=== PATIENT | male | born 1990 | race American Indian/Alaskan Native ===

== ENCOUNTER 2020-06-04 12:24 | Inpatient (IN) ==
[2020-06-04] MEDS ORDERED: INSULIN REGULAR 100 UNIT/ML IV ONE (14:27)
[2020-06-04] MEDS ORDERED: ALBUTEROL 2.5 MG/3 ML NEB RESP TX PRN (14:27)
[2020-06-04] MEDS ORDERED: MAGNESIUM SULF RIDER 4 GM in PREMIX 1 EACH IV PRN (14:27)
[2020-06-04] MEDS ORDERED: DEXTROSE 50% 25 GM/50 ML VIAL IV PRN (14:27)
[2020-06-04] MEDS: LACTATED RINGERS 1,000 ML IV SCH ×2 (14:53→19:25)
[2020-06-04 14:54] LABS: Bilirubin,Urine Negative (Negative); Blood, Urine Moderate mg/dL (Negative); Glucose,Urine (UA) >=500 mg/dL (Negative); Ketones,Urine 5 mg/dL (Negative); Nitrite,Urine Negative (Negative); Protein,Urine Negative; RBC,Urine <1 /HPF (0-4); Urine Appearance CLEAR (Clear); Urine Color Straw (Yellow); Urine Urobilinogen < 2.0 EU/DL (0.2-1.0); WBC,Urine 2 /HPF (0-6)
[2020-06-04] MEDS: PANTOPRAZOLE 40 MG VIAL IV SCH (15:06)
[2020-06-04 15:18] LABS: Alanine Aminotransferase 49 U/L (16-61); Albumin 1.6 G/DL (3.4-5.0); Alkaline Phosphatase 119 U/L (45-117); Aspartate Amino Transferase 22 U/L (0-37); Blood Urea Nitrogen 25 MG/DL (7-18); Estimated Glom Filtration Rate 92 ML/MIN; Osmolality,Calculated 332.2 MOS/KG (273-304); Total Protein 3.6 G/DL (6.4-8.3); Troponin I 0.017 NG/ML (0.00-0.045)
[2020-06-04] MEDS: POTASSIUM CHLORIDE RIDER 10 MEQ in PREMIX 1 EACH IV PRN ×8 (15:20→22:49)
[2020-06-04 15:21] LABS: Calcium < 5.0 MG/DL (8.5-10.1); Glucose 1190 MG/DL (74-106)
[2020-06-04] MEDS ORDERED: POTASSIUM CHLORIDE 20 MEQ TABLET PO ONE (15:31)
[2020-06-04] MEDS ORDERED: LACTATED RINGERS 1,000 ML IV SCH ×2 (16:00→16:30)
[2020-06-04] MEDS: POTASSIUM CHLORIDE 20 MEQ TABLET PO SCH ×5 (16:25→20:47)
[2020-06-04 18:48] LABS: Calcium 8.1 MG/DL (8.5-10.1); Osmolality,Calculated 335.2 MOS/KG (273-304)
[2020-06-04] MEDS: ONDANSETRON 4 MG/2 ML VIAL IV PRN (20:21)
[2020-06-04 21:42] LABS: Osmolality,Calculated 335.1 MOS/KG (273-304)
[2020-06-04] MEDS: ENOXAPARIN 30 MG/0.3 ML SYRINGE SUBCUT SCH (22:21)
[2020-06-04 22:27] LABS: ABG Base Excess -15.5 MMOL/L (-2.5-2.5); ABG Oxygen Saturation 96.6 % (95-100); ABG PCO2 23.3 MM HG (35-48); ABG PH 7.256 (7.35-7.45); ABG PO2 84.3 MM HG (80-95); ABG TCO2 9.1 MMOL/L (23-27); Allen Test Positive; Pt O2 Delivery Device Room Air
[2020-06-04] MEDS: POTASSIUM CHLORIDE 20 MEQ/15 ML UDCUP PER TUBE PRN (22:49)
[2020-06-05] MEDS: POTASSIUM CHLORIDE RIDER 10 MEQ in PREMIX 1 EACH IV PRN ×6 (00:10→20:56)
[2020-06-05] MEDS: POTASSIUM CHLORIDE 20 MEQ/15 ML UDCUP PER TUBE PRN ×2 (00:40→03:03)
[2020-06-05 00:48] LABS: Calcium 8.5 MG/DL (8.5-10.1); Osmolality,Calculated 326.9 MOS/KG (273-304)
[2020-06-05] MEDS: ONDANSETRON 4 MG/2 ML VIAL IV PRN (00:48)
[2020-06-05] MEDS: LACTATED RINGERS 1,000 ML IV SCH ×4 (00:49→12:59)
[2020-06-05] MEDS: INSULIN REGULAR DRIP 100 ML IV SCH ×4 (00:54→22:23)
[2020-06-05 03:02] LABS: Basophils % 0.3 % (0.0-0.8); Hematocrit 36.8 VOL% (42.0-52.0); Hemoglobin 12.8 GM/DL (14.0-18.0); Immature Granulocytes % 0.5 %; Immature Granulocytes Absolute 0.03 #; Lymphocytes # 0.3 10*3/uL (1.4-4.0); Lymphocytes % 5.1 % (21.2-54.2); Mean Corpuscular HGB Conc 34.8 GM/DL (32-36); Mean Corpuscular Volume 86.8 FL (87-102); Mean Platelet Volume 10.5 FL (9.6-12.0); Monocytes % 7.9 % (1.7-12.7); Neutrophils % 86.2 % (38.7-73.9); Platelet Count 196 T/CUMM (130-400); Red Blood Count 4.24 MC/CUMM (3.8-5.5); Red Cell Distribution Width 13.3 % (9.3-17.3); White Blood Count 6.1 T/CUMM (4-12)
[2020-06-05] MEDS: MAGNESIUM SULF RIDER 2 GM in PREMIX 1 EACH IV PRN (03:21)
[2020-06-05 03:22] LABS: Albumin 2.1 G/DL (3.4-5.0); Bilirubin,Total 0.7 MG/DL (0.2-1.0); Calcium 8.2 MG/DL (8.5-10.1); Osmolality,Calculated 323.8 MOS/KG (273-304); Total Protein 4.9 G/DL (6.4-8.3)
[2020-06-05] MEDS: ACETAMINOPHEN 325 MG TABLET PO PRN ×3 (03:55→20:06)
[2020-06-05] MEDS ORDERED: SODIUM CHLORIDE 0.9% IV ONE (04:00)
[2020-06-05] MEDS ORDERED: SODIUM PHOSPHATE IV ONE (04:00)
[2020-06-05] MEDS ORDERED: NOREPINEPHRINE 4 MG/4 ML VIAL IV ONE ×2 (04:03→06:40)
[2020-06-05] MEDS: NOREPINEPHRINE 8 MG in SODIUM CHLORIDE 0.9% 242 ML IV PRN ×4 (04:08→22:19)
[2020-06-05] MEDS ORDERED: cefTRIAXone 1,000 MG in SYRINGE 1 EACH IV SCH (04:30)
[2020-06-05 04:54] LABS: Atypical Lymphocytes Few; Band Neutrophils 8 % (0-10); Lymphocytes 10 % (20-55); Metamyelocytes 2 %; Myelocytes 1 %; Segmented Neutrophils 75 % (50-85); Total Cells Counted 100
[2020-06-05 04:55] LABS: Microcytosis 1+
[2020-06-05] MEDS ORDERED: PROMETHAZINE INJ 12.5 MG in SODIUM CHLORIDE 0.9% 50 ML IV ONE (05:00)
[2020-06-05] MEDS ORDERED: PHENYLEPHRINE DRIP 40 MG/250 ML PREMIX IV ONE (06:02)
[2020-06-05] MEDS: PHENYLEPHRINE DRIP 40 MG/250 ML PREMIX IV PRN ×6 (06:10→20:52)
[2020-06-05 06:23] LABS: Calcium 8.4 MG/DL (8.5-10.1); Osmolality,Calculated 323.7 MOS/KG (273-304)
[2020-06-05] MEDS ORDERED: ALBUMIN 5% 12.5 GM/250 ML VIAL IV ONE (06:40)
[2020-06-05] MEDS ORDERED: CALCIUM CHLORIDE 1,000 MG/10 ML VIAL IV ONE (06:40)
[2020-06-05] MEDS ORDERED: SODIUM BICARBONATE 50 MEQ/50 ML VIAL IV ONE (06:40)
[2020-06-05 07:00] LABS: ABG Base Excess -12.7 MMOL/L (-2.5-2.5); ABG HCO3 13.2 MMOL/L (20-26); ABG PCO2 31.1 MM HG (35-48); ABG PO2 280.8 MM HG (80-95); ABG TCO2 14.2 MMOL/L (23-27); Hemoglobin Heart Surgery 14.2 G/DL (14.0-18.0); Ionized Calcium Arterial 1.22 MMOL/L (1.21-1.46); PCO2 Patient Temp Arterial 31.1 MMHG; PH Patient Temp Arterial 7.246; PO2 Patient Temp Arterial 280.8 MM HG; Patient Temperature 37 CELCIUS; Sodium Heart/CVR 127 MMOL/L (135-145)
[2020-06-05 07:02] LABS: ABG PH 7.246 (7.35-7.45)
[2020-06-05] MEDS ORDERED: LIDOCAINE 2% 5 ML VIAL ONE (08:15)
[2020-06-05] MEDS ORDERED: ETOMIDATE 40 MG/20 ML VIAL IV ONE (08:16)
[2020-06-05] MEDS ORDERED: MIDAZOLAM 2 MG/2 ML VIAL ONE (08:16)
[2020-06-05] MEDS ORDERED: ROCURONIUM 100 MG/10 ML VIAL IV ONE (08:16)
[2020-06-05] MEDS ORDERED: SUCCINYLCHOLINE 200 MG/10 ML VIAL ONE (08:16)
[2020-06-05] MEDS ORDERED: LACTATED RINGERS 1,000 ML IV ONE (08:16)
[2020-06-05] MEDS ORDERED: SEVOFLURANE 1 UNIT/15 MINUTE INH ONE (08:16)
[2020-06-05] MEDS ORDERED: HEPARIN/NACL 0.9% 2 UNITS/ML 500 ML IV ONE (08:16)
[2020-06-05] MEDS ORDERED: fentaNYL 100 MCG/2 ML VIAL ONE (08:16)
[2020-06-05 08:32] LABS: ABG Base Excess -9.7 MMOL/L (-2.5-2.5); ABG HCO3 16.8 MMOL/L (20-26); ABG Oxygen Saturation 99.9 % (95-100); ABG PCO2 36.7 MM HG (35-48); ABG PH 7.266 (7.35-7.45)
[2020-06-05 10:16] LABS: Calcium 7.6 MG/DL (8.5-10.1); Osmolality,Calculated 316.8 MOS/KG (273-304)
[2020-06-05] MEDS: POTASSIUM CHLORIDE INJ 40 MEQ in LACTATED RINGERS 1,000 ML IV SCH ×3 (11:21→20:29)
[2020-06-05] MEDS: fentaNYL INJ 1,250 MCG in SODIUM CHLORIDE 0.9% 225 ML IV PRN ×2 (12:24→23:51)
[2020-06-05] MEDS: PANTOPRAZOLE 40 MG VIAL IV SCH (15:07)
[2020-06-05 15:58] LABS: Osmolality,Calculated 329.2 MOS/KG (273-304)
[2020-06-05] MEDS: POTASSIUM CHLORIDE RIDER 20 MEQ in PREMIX 1 EACH IV PRN ×2 (16:42→18:49)
[2020-06-05] MEDS: metroNIDAZOLE INJ 500 MG in PREMIX 1 EACH IV SCH (17:02)
[2020-06-05 17:28] LABS: Calcium 7.6 MG/DL (8.5-10.1)
[2020-06-05] MEDS: cefOXitin 2,000 MG in SYRINGE 1 EACH IV SCH (18:00)
[2020-06-05] MEDS ORDERED: DEXTROSE IV SCH (19:30)
[2020-06-05] MEDS ORDERED: POTASSIUM CHLORIDE IV SCH (19:30)
[2020-06-05] MEDS ORDERED: LACTATED RINGERS IV SCH (19:30)
[2020-06-05] MEDS: ENOXAPARIN 30 MG/0.3 ML SYRINGE SUBCUT SCH (20:06)
[2020-06-05] MEDS: POTASSIUM CHLORIDE INJ 40 MEQ in DEXTROSE 5% LACTATED RINGERS 1,000 ML IV SCH (20:13)
[2020-06-06] MEDS: metroNIDAZOLE INJ 500 MG in PREMIX 1 EACH IV SCH ×4 (00:43→16:58)
[2020-06-06 00:56] LABS: Calcium 6.8 MG/DL (8.5-10.1); Osmolality,Calculated 303.3 MOS/KG (273-304)
[2020-06-06] MEDS: POTASSIUM CHLORIDE RIDER 20 MEQ in PREMIX 1 EACH IV PRN ×2 (01:28→03:30)
[2020-06-06] MEDS: POTASSIUM CHLORIDE INJ 40 MEQ in DEXTROSE 5% LACTATED RINGERS 1,000 ML IV SCH ×2 (01:37→07:02)
[2020-06-06] MEDS: MAGNESIUM SULF RIDER 2 GM in PREMIX 1 EACH IV PRN (01:43)
[2020-06-06] MEDS: PHENYLEPHRINE DRIP 40 MG/250 ML PREMIX IV PRN ×3 (02:45→14:50)
[2020-06-06 04:19] LABS: ABG Base Excess -9.3 MMOL/L (-2.5-2.5); ABG Oxygen Saturation 99.7 % (95-100); ABG PH 7.309 (7.35-7.45); ABG TCO2 14.6 MMOL/L (23-27)
[2020-06-06 04:34] LABS: Basophils # 0.1 10*3/uL (0.0-0.2); Basophils % 0.7 % (0.0-0.8); Eosinophils # 0.2 10*3/uL (0.0-0.87); Immature Granulocytes Absolute 0.19 #; Lymphocytes # 1.3 10*3/uL (1.4-4.0); Lymphocytes % 13.8 % (21.2-54.2); Mean Corpuscular HGB Conc 36.6 GM/DL (32-36); Mean Corpuscular Volume 83.3 FL (87-102); Mean Platelet Volume 11.2 FL (9.6-12.0); Monocytes % 4.2 % (1.7-12.7); Neutrophils % 77.3 % (38.7-73.9); Red Blood Count 3.48 MC/CUMM (3.8-5.5); Red Cell Distribution Width 13.9 % (9.3-17.3)
[2020-06-06 04:44] LABS: Hemoglobin 10.6 GM/DL (14.0-18.0); Platelet Count 151 T/CUMM (130-400); White Blood Count 9.5 T/CUMM (4-12)
[2020-06-06 04:50] LABS: Band Neutrophils 5 % (0-10); Eosinophils 4 % (0-10); Lymphocytes 8 % (20-55); Microcytosis Slight; Platelet Estimate Adequate; Segmented Neutrophils 81 % (50-85); Total Cells Counted 100
[2020-06-06 04:51] LABS: Albumin 1.8 G/DL (3.4-5.0); Bilirubin,Total 0.5 MG/DL (0.2-1.0); Calcium 7.4 MG/DL (8.5-10.1); Osmolality,Calculated 306.6 MOS/KG (273-304); Total Protein 4.6 G/DL (6.4-8.3)
[2020-06-06 04:51] LABS: Atypical Lymphocytes Few
[2020-06-06] MEDS: INSULIN REGULAR DRIP 100 ML IV SCH ×2 (05:37→12:57)
[2020-06-06] MEDS: NOREPINEPHRINE 8 MG in SODIUM CHLORIDE 0.9% 242 ML IV PRN (06:10)
[2020-06-06] MEDS: cefOXitin 2,000 MG in SYRINGE 1 EACH IV SCH ×2 (06:35→17:45)
[2020-06-06] MEDS: POTASSIUM CHLORIDE RIDER 10 MEQ in PREMIX 1 EACH IV PRN (06:54)
[2020-06-06 07:23] LABS: Glucose Heart Surgery > 700 MG/DL (74-106)
[2020-06-06 08:18] LABS: Calcium 7.5 MG/DL (8.5-10.1); Osmolality,Calculated 305.4 MOS/KG (273-304)
[2020-06-06] MEDS ORDERED: POTASSIUM CHLORIDE IV SCH (09:30)
[2020-06-06] MEDS ORDERED: DEXTROSE 5% IV SCH (09:30)
[2020-06-06] MEDS ORDERED: LACTATED RINGERS IV SCH (09:30)
[2020-06-06] MEDS: PANTOPRAZOLE 40 MG VIAL IV SCH ×2 (10:37→20:27)
[2020-06-06] MEDS: fentaNYL INJ 1,250 MCG in SODIUM CHLORIDE 0.9% 225 ML IV PRN ×2 (11:50→21:32)
[2020-06-06 12:17] LABS: Calcium 7.6 MG/DL (8.5-10.1); Osmolality,Calculated 301.4 MOS/KG (273-304)
[2020-06-06] MEDS ORDERED: HEPARIN/NACL 0.9% 2 UNITS/ML 500 ML IV ONE (15:02)
[2020-06-06] MEDS: DEXT 5% LACT RING KCL 20 MEQ 20 MEQ/1,000 ML BAG IV SCH ×2 (15:34→20:41)
[2020-06-06 19:40] LABS: Calcium 7.8 MG/DL (8.5-10.1); Osmolality,Calculated 307.7 MOS/KG (273-304)
[2020-06-06] MEDS: ENOXAPARIN 30 MG/0.3 ML SYRINGE SUBCUT SCH (20:27)
[2020-06-07] MEDS: PHENYLEPHRINE DRIP 40 MG/250 ML PREMIX IV PRN ×2 (00:18→08:15)
[2020-06-07] MEDS: metroNIDAZOLE INJ 500 MG in PREMIX 1 EACH IV SCH ×3 (00:40→17:45)
[2020-06-07] MEDS: DEXT 5% LACT RING KCL 20 MEQ 20 MEQ/1,000 ML BAG IV SCH ×2 (02:42→07:25)
[2020-06-07] MEDS: INSULIN REGULAR DRIP 100 ML IV SCH (04:08)
[2020-06-07 04:47] LABS: ABG Base Excess -10.6 MMOL/L (-2.5-2.5); ABG HCO3 16.3 MMOL/L (20-26); ABG Oxygen Saturation 99.6 % (95-100); ABG PCO2 36.1 MM HG (35-48); ABG PH 7.255 (7.35-7.45); ABG TCO2 14.2 MMOL/L (23-27)
[2020-06-07 04:51] LABS: Basophils # 0.1 10*3/uL (0.0-0.2); Basophils % 0.6 % (0.0-0.8); Eosinophils # 0.2 10*3/uL (0.0-0.87); Hematocrit 26.4 VOL% (42.0-52.0); Hemoglobin 9.2 GM/DL (14.0-18.0); Immature Granulocytes % 0.9 %; Immature Granulocytes Absolute 0.07 #; Lymphocytes # 1.1 10*3/uL (1.4-4.0); Lymphocytes % 13.9 % (21.2-54.2); Mean Corpuscular HGB Conc 34.8 GM/DL (32-36); Mean Corpuscular Volume 87.7 FL (87-102); Mean Platelet Volume 11.7 FL (9.6-12.0); Monocytes % 9.5 % (1.7-12.7); NRBC # 0.02 10*3/uL; Neutrophils % 72.1 % (38.7-73.9); Platelet Count 118 T/CUMM (130-400); Red Blood Count 3.01 MC/CUMM (3.8-5.5); Red Cell Distribution Width 15.1 % (9.3-17.3); White Blood Count 7.9 T/CUMM (4-12)
[2020-06-07 05:12] LABS: Eosinophils 5 % (0-10); Lymphocytes 18 % (20-55); Nucleated Red Blood Cells 1 (0-5); Platelet Estimate Decreased; Segmented Neutrophils 69 % (50-85); Total Cells Counted 100
[2020-06-07 05:13] LABS: Atypical Lymphocytes Few; Hypochromasia 1+; Microcytosis Slight
[2020-06-07 05:24] LABS: Calcium 7.7 MG/DL (8.5-10.1); Osmolality,Calculated 309.3 MOS/KG (273-304)
[2020-06-07] MEDS: cefOXitin 2,000 MG in SYRINGE 1 EACH IV SCH ×2 (06:10→17:00)
[2020-06-07] MEDS: fentaNYL INJ 1,250 MCG in SODIUM CHLORIDE 0.9% 225 ML IV PRN (07:35)
[2020-06-07] MEDS: PANTOPRAZOLE 40 MG VIAL IV SCH ×2 (08:50→20:42)
[2020-06-07] MEDS ORDERED: NOREPINEPHRINE 16 MG in DEXTROSE 5% 234 ML IV PRN (09:00)
[2020-06-07] MEDS: DEXTROSE 5% NACL 0.45% 1,000 ML IV SCH ×2 (09:50→17:55)
[2020-06-07] MEDS: ALBUMIN 25% 25 GM in PREMIX 1 EACH IV SCH ×2 (10:05→17:45)
[2020-06-07] MEDS ORDERED: DEXTROSE 50% 25 GM/50 ML VIAL IV PRN (10:29)
[2020-06-07] MEDS ORDERED: GLUCAGON 1 MG VIAL IM PRN (10:29)
[2020-06-07] MEDS ORDERED: ROCURONIUM 100 MG/10 ML VIAL IV ONE (12:31)
[2020-06-07] MEDS ORDERED: SEVOFLURANE 1 UNIT/15 MINUTE INH ONE (12:31)
[2020-06-07] MEDS ORDERED: SODIUM CHLORIDE 0.9% 500 ML IV ONE (12:31)
[2020-06-07] MEDS ORDERED: MIDAZOLAM 2 MG/2 ML VIAL ONE (12:31)
[2020-06-07] MEDS: INSULIN LISPRO 100 UNIT/ML SUBCUT SCH ×3 (13:10→20:41)
[2020-06-07] MEDS: INSULIN GLARGINE 100 UNIT/ML SUBCUT SCH ×2 (13:10→20:42)
[2020-06-07 13:19] LABS: Calcium 7.9 MG/DL (8.5-10.1); Osmolality,Calculated 305.7 MOS/KG (273-304)
[2020-06-07] MEDS: fentaNYL INJ 1,250 MCG in DEXTROSE 5% 225 ML IV PRN ×2 (15:10→21:30)
[2020-06-07] MEDS: PHENYLEPHRINE INJ 160 MG in DEXTROSE 5% 234 ML IV PRN (15:10)
[2020-06-07] MEDS: ENOXAPARIN 30 MG/0.3 ML SYRINGE SUBCUT SCH (20:42)
[2020-06-08] MEDS: INSULIN LISPRO 100 UNIT/ML SUBCUT SCH ×9 (00:14→22:50)
[2020-06-08] MEDS: metroNIDAZOLE INJ 500 MG in PREMIX 1 EACH IV SCH ×3 (01:45→16:45)
[2020-06-08] MEDS: ALBUMIN 25% 25 GM in PREMIX 1 EACH IV SCH ×2 (01:50→08:15)
[2020-06-08] MEDS: DEXTROSE 5% NACL 0.45% 1,000 ML IV SCH ×3 (01:55→23:36)
[2020-06-08] MEDS: fentaNYL INJ 1,250 MCG in DEXTROSE 5% 225 ML IV PRN ×2 (01:56→06:30)
[2020-06-08 04:52] LABS: ABG Base Excess -12.9 MMOL/L (-2.5-2.5); ABG HCO3 13.5 MMOL/L (20-26); ABG Oxygen Saturation 95.5 % (95-100); ABG PCO2 33.2 MM HG (35-48); ABG PH 7.228 (7.35-7.45); ABG PO2 81.8 MM HG (80-95); ABG TCO2 14.5 MMOL/L (23-27)
[2020-06-08 05:00] LABS: Basophils % 0.2 % (0.0-0.8); Eosinophils # 0.2 10*3/uL (0.0-0.87); Eosinophils % 2.4 % (0.00-10.9); Hematocrit 25.5 VOL% (42.0-52.0); Hemoglobin 8.2 GM/DL (14.0-18.0); Immature Granulocytes % 2.8 %; Immature Granulocytes Absolute 0.23 #; Lymphocytes # 1.4 10*3/uL (1.4-4.0); Lymphocytes % 16.9 % (21.2-54.2); Mean Corpuscular HGB Conc 32.2 GM/DL (32-36); Mean Corpuscular Volume 93.8 FL (87-102); Mean Platelet Volume 11.4 FL (9.6-12.0); Monocytes % 14.8 % (1.7-12.7); NRBC # 0.03 10*3/uL; Neutrophils % 62.9 % (38.7-73.9); Platelet Count 138 T/CUMM (130-400); Red Blood Count 2.72 MC/CUMM (3.8-5.5); Red Cell Distribution Width 15.3 % (9.3-17.3); White Blood Count 8.4 T/CUMM (4-12)
[2020-06-08 05:20] LABS: Band Neutrophils 1 % (0-10); Eosinophils 3 % (0-10); Lymphocytes 16 % (20-55); Platelet Estimate Normal; Segmented Neutrophils 75 % (50-85); Total Cells Counted 100
[2020-06-08 05:21] LABS: Hypochromasia Slight
[2020-06-08] MEDS: cefOXitin 2,000 MG in SYRINGE 1 EACH IV SCH ×2 (05:40→16:45)
[2020-06-08 07:57] LABS: Calcium 8.2 MG/DL (8.5-10.1); Osmolality,Calculated 308.3 MOS/KG (273-304)
[2020-06-08] MEDS: INSULIN GLARGINE 100 UNIT/ML SUBCUT SCH ×2 (08:15→21:37)
[2020-06-08] MEDS: PANTOPRAZOLE 40 MG VIAL IV SCH ×2 (08:15→21:35)
[2020-06-08] MEDS ORDERED: NOREPINEPHRINE 16 MG in DEXTROSE 5% 250 ML IV PRN (08:35)
[2020-06-08] MEDS ORDERED: fentaNYL INJ 2,500 MCG in SODIUM CHLORIDE 0.9% 200 ML IV PRN (08:38)
[2020-06-08] MEDS ORDERED: DEXTROSE 5% IV PRN (08:43)
[2020-06-08] MEDS ORDERED: FENTANYL IV PRN (08:43)
[2020-06-08] MEDS ORDERED: NOREPINEPHRINE 16 MG in DEXTROSE 5% 234 ML IV PRN ×2 (09:30→12:52)
[2020-06-08] MEDS ORDERED: INSULIN GLARGINE 100 UNIT/ML SUBCUT ONE (10:00)
[2020-06-08] MEDS ORDERED: SODIUM BICARBONATE 50 MEQ/50 ML VIAL IV ONE (10:00)
[2020-06-08] MEDS: DEXTROSE 5% IV PRN ×2 (11:40→19:05)
[2020-06-08] MEDS: FENTANYL IV PRN ×2 (11:40→19:05)
[2020-06-08] MEDS ORDERED: ALBUTEROL/IPRATROPIUM 3 ML NEB RESP TX ONE (11:58)
[2020-06-08] MEDS: ALBUTEROL/IPRATROPIUM 3 ML NEB RESP TX SCH ×2 (13:17→19:12)
[2020-06-09] MEDS: ALBUTEROL/IPRATROPIUM 3 ML NEB RESP TX SCH ×4 (00:55→20:11)
[2020-06-09] MEDS: INSULIN LISPRO 100 UNIT/ML SUBCUT SCH ×10 (01:00→23:54)
[2020-06-09] MEDS: metroNIDAZOLE INJ 500 MG in PREMIX 1 EACH IV SCH ×3 (01:54→17:47)
[2020-06-09] MEDS: PHENYLEPHRINE INJ 160 MG in DEXTROSE 5% 234 ML IV PRN (03:35)
[2020-06-09] MEDS: DEXTROSE 5% IV PRN ×2 (04:05→19:30)
[2020-06-09] MEDS: FENTANYL IV PRN ×2 (04:05→19:30)
[2020-06-09 04:48] LABS: ABG Base Excess -12.8 MMOL/L (-2.5-2.5); ABG HCO3 14.4 MMOL/L (20-26); ABG Oxygen Saturation 99.8 % (95-100); ABG PCO2 38.7 MM HG (35-48); ABG TCO2 14.1 MMOL/L (23-27)
[2020-06-09 04:52] LABS: ABG PH 7.188 (7.35-7.45)
[2020-06-09 05:06] LABS: Basophils # 0.1 10*3/uL (0.0-0.2); Basophils % 0.4 % (0.0-0.8); Eosinophils # 0.5 10*3/uL (0.0-0.87); Eosinophils % 4.6 % (0.00-10.9); Hematocrit 26.8 VOL% (42.0-52.0); Hemoglobin 8.7 GM/DL (14.0-18.0); Immature Granulocytes % 8.1 %; Immature Granulocytes Absolute 0.93 #; Lymphocytes # 1.5 10*3/uL (1.4-4.0); Lymphocytes % 12.6 % (21.2-54.2); Mean Corpuscular HGB Conc 32.5 GM/DL (32-36); Mean Corpuscular Volume 94.4 FL (87-102); Mean Platelet Volume 11.4 FL (9.6-12.0); Monocytes % 17.5 % (1.7-12.7); NRBC # 0.11 10*3/uL; Neutrophils % 56.8 % (38.7-73.9); Platelet Count 165 T/CUMM (130-400); Red Blood Count 2.84 MC/CUMM (3.8-5.5); Red Cell Distribution Width 14.5 % (9.3-17.3); White Blood Count 11.5 T/CUMM (4-12)
[2020-06-09] MEDS ORDERED: SODIUM BICARBONATE 50 MEQ/50 ML VIAL IV ONE ×2 (05:07→08:40)
[2020-06-09 05:13] LABS: Bilirubin,Total 0.8 MG/DL (0.2-1.0); Calcium 8.2 MG/DL (8.5-10.1); Osmolality,Calculated 301.1 MOS/KG (273-304); Total Protein 4.9 G/DL (6.4-8.3)
[2020-06-09 05:54] LABS: Eosinophils 8 % (0-10); Lymphocytes 17 % (20-55); Platelet Estimate Normal; Segmented Neutrophils 61 % (50-85); Total Cells Counted 100
[2020-06-09 05:55] LABS: Anisocytosis Slight; Polychromasia Slight
[2020-06-09] MEDS: cefOXitin 2,000 MG in SYRINGE 1 EACH IV SCH ×2 (06:06→18:04)
[2020-06-09 07:05] LABS: ABG Base Excess -11.7 MMOL/L (-2.5-2.5); ABG HCO3 15.1 MMOL/L (20-26); ABG Oxygen Saturation 98.9 % (95-100); ABG PCO2 33.2 MM HG (35-48); ABG PH 7.251 (7.35-7.45); ABG TCO2 13.8 MMOL/L (23-27)
[2020-06-09] MEDS ORDERED: SEVOFLURANE 1 UNIT/15 MINUTE INH ONE (08:40)
[2020-06-09] MEDS ORDERED: PHENYLEPHRINE 10 MG/1 ML VIAL IV ONE (08:41)
[2020-06-09] MEDS ORDERED: MIDAZOLAM 2 MG/2 ML VIAL ONE (08:41)
[2020-06-09 09:01] LABS: ABG Base Excess -11.5 MMOL/L (-2.5-2.5); ABG HCO3 15.3 MMOL/L (20-26); ABG Oxygen Saturation 94.1 % (95-100); ABG PCO2 35.7 MM HG (35-48); ABG PH 7.238 (7.35-7.45); ABG PO2 70.4 MM HG (80-95); ABG TCO2 14.2 MMOL/L (23-27)
[2020-06-09] MEDS: PANTOPRAZOLE 40 MG VIAL IV SCH ×2 (10:19→21:54)
[2020-06-09] MEDS: INSULIN GLARGINE 100 UNIT/ML SUBCUT SCH ×2 (10:23→22:13)
[2020-06-09] MEDS: SODIUM BICARB INJ 100 MEQ in SODIUM CHLORIDE 0.45% 1,000 ML IV SCH ×2 (11:14→23:16)
[2020-06-09 13:16] LABS: Hepatitis B Core IgM Quant 0.08 Index; Hepatitis B Surface Ag Quant 0.13 Index; Hepatitis B Surface Ag Result Negative (Negative); Hepatitis C Virus Ab Quant 0.02 Index; Hepatitis C Virus Ab Result Negative (Negative)
[2020-06-09] MEDS: HEPARIN 5,000 UNIT/1 ML VIAL SUBCUT SCH (21:57)
[2020-06-10] MEDS: metroNIDAZOLE INJ 500 MG in PREMIX 1 EACH IV SCH ×3 (00:38→17:30)
[2020-06-10] MEDS: ALBUTEROL/IPRATROPIUM 3 ML NEB RESP TX SCH ×4 (00:57→19:55)
[2020-06-10] MEDS: DEXTROSE 5% IV PRN ×2 (03:50→12:30)
[2020-06-10] MEDS: FENTANYL IV PRN ×2 (03:50→12:30)
[2020-06-10 05:37] LABS: ABG Base Excess -3.2 MMOL/L (-2.5-2.5); ABG HCO3 21.8 MMOL/L (20-26); ABG PCO2 33.9 MM HG (35-48); ABG PH 7.401 (7.35-7.45); ABG TCO2 19.7 MMOL/L (23-27)
[2020-06-10] MEDS: INSULIN LISPRO 100 UNIT/ML SUBCUT SCH ×9 (05:59→23:44)
[2020-06-10] MEDS: DEXTROSE 50% 25 GM/50 ML VIAL IV PRN (06:00)
[2020-06-10] MEDS: cefOXitin 2,000 MG in SYRINGE 1 EACH IV SCH ×2 (07:28→17:25)
[2020-06-10] MEDS ORDERED: SODIUM CHLORIDE 0.9% 1,000 ML IV PRN (07:58)
[2020-06-10 09:26] LABS: Basophils % 0.3 % (0.0-0.8); Eosinophils # 0.4 10*3/uL (0.0-0.87); Eosinophils % 2.8 % (0.00-10.9); Hematocrit 25.3 VOL% (42.0-52.0); Hemoglobin 8.2 GM/DL (14.0-18.0); Immature Granulocytes % 6.1 %; Immature Granulocytes Absolute 0.75 #; Lymphocytes # 1.8 10*3/uL (1.4-4.0); Lymphocytes % 14.8 % (21.2-54.2); Mean Corpuscular HGB Conc 32.4 GM/DL (32-36); Mean Platelet Volume 11.3 FL (9.6-12.0); Monocytes % 13.8 % (1.7-12.7); NRBC # 0.22 10*3/uL; Neutrophils % 62.2 % (38.7-73.9); Platelet Count 217 T/CUMM (130-400); Red Blood Count 2.72 MC/CUMM (3.8-5.5); Red Cell Distribution Width 14.3 % (9.3-17.3); White Blood Count 12.3 T/CUMM (4-12)
[2020-06-10] MEDS: SODIUM BICARB INJ 100 MEQ in SODIUM CHLORIDE 0.45% 1,000 ML IV SCH (09:27)
[2020-06-10] MEDS: PANTOPRAZOLE 40 MG VIAL IV SCH ×2 (09:30→20:41)
[2020-06-10] MEDS: HEPARIN 5,000 UNIT/1 ML VIAL SUBCUT SCH ×2 (09:30→20:43)
[2020-06-10] MEDS: INSULIN GLARGINE 100 UNIT/ML SUBCUT SCH ×2 (09:31→20:25)
[2020-06-10 09:33] LABS: Albumin 1.7 G/DL (3.4-5.0); Bilirubin,Total 0.6 MG/DL (0.2-1.0); Calcium 7.7 MG/DL (8.5-10.1); Osmolality,Calculated 304.7 MOS/KG (273-304)
[2020-06-10 09:59] LABS: Anisocytosis 1+; Band Neutrophils 4 % (0-10); Eosinophils 1 % (0-10); Lymphocytes 9 % (20-55); Metamyelocytes 3 %; Platelet Estimate Normal; Polychromasia Slight; Segmented Neutrophils 70 % (50-85); Total Cells Counted 100
[2020-06-10] MEDS ORDERED: HEPARIN 10,000 UNIT/10 ML VIAL IV SCH (11:30)
[2020-06-10] MEDS: ACETAMINOPHEN 325 MG TABLET PO PRN (19:27)
[2020-06-11] MEDS: ALBUTEROL/IPRATROPIUM 3 ML NEB RESP TX SCH ×4 (01:58→19:35)
[2020-06-11] MEDS: metroNIDAZOLE INJ 500 MG in PREMIX 1 EACH IV SCH ×3 (02:33→17:50)
[2020-06-11 04:58] LABS: Basophils # 0.1 10*3/uL (0.0-0.2); Basophils % 0.5 % (0.0-0.8); Eosinophils # 0.2 10*3/uL (0.0-0.87); Eosinophils % 1.1 % (0.00-10.9); Hematocrit 28.3 VOL% (42.0-52.0); Hemoglobin 9.3 GM/DL (14.0-18.0); Immature Granulocytes % 7.1 %; Immature Granulocytes Absolute 1.19 #; Lymphocytes % 11.6 % (21.2-54.2); Mean Corpuscular HGB Conc 32.9 GM/DL (32-36); Mean Corpuscular Volume 91.9 FL (87-102); Mean Platelet Volume 10.6 FL (9.6-12.0); Monocytes % 10.9 % (1.7-12.7); NRBC # 0.09 10*3/uL; Neutrophils % 68.8 % (38.7-73.9); Platelet Count 205 T/CUMM (130-400); Red Blood Count 3.08 MC/CUMM (3.8-5.5); White Blood Count 16.8 T/CUMM (4-12)
[2020-06-11 05:00] LABS: ABG HCO3 20.2 MMOL/L (20-26); ABG PCO2 29.9 MM HG (35-48); ABG PH 7.407 (7.35-7.45); ABG TCO2 17.5 MMOL/L (23-27)
[2020-06-11 05:19] LABS: Osmolality,Calculated 292.7 MOS/KG (273-304)
[2020-06-11] MEDS: cefOXitin 2,000 MG in SYRINGE 1 EACH IV SCH ×2 (06:30→21:17)
[2020-06-11] MEDS: INSULIN LISPRO 100 UNIT/ML SUBCUT SCH ×7 (06:38→21:39)
[2020-06-11] MEDS ORDERED: ALBUMIN 25% 25 GM in PREMIX 1 EACH IV ONE (08:26)
[2020-06-11] MEDS ORDERED: LORazepam 2 MG/1 ML VIAL IV PRN (08:28)
[2020-06-11] MEDS: HEPARIN 5,000 UNIT/1 ML VIAL SUBCUT SCH ×2 (08:55→21:31)
[2020-06-11] MEDS: INSULIN GLARGINE 100 UNIT/ML SUBCUT SCH ×2 (08:56→23:38)
[2020-06-11] MEDS: PANTOPRAZOLE 40 MG VIAL IV SCH ×2 (08:58→21:55)
[2020-06-11] MEDS ORDERED: LORazepam 2 MG/1 ML VIAL ONE (09:11)
[2020-06-11 10:30] LABS: ABG Base Excess -2.3 MMOL/L (-2.5-2.5); ABG HCO3 22.5 MMOL/L (20-26); ABG PCO2 30.3 MM HG (35-48); ABG PH 7.449 (7.35-7.45); ABG TCO2 19.4 MMOL/L (23-27)
[2020-06-11 11:56] LABS: Band Neutrophils 4 % (0-10); Eosinophils 1 % (0-10); Lymphocytes 10 % (20-55); Platelet Estimate Normal; Polychromasia Slight; Segmented Neutrophils 78 % (50-85); Total Cells Counted 100
[2020-06-11] MEDS: FENTANYL IV PRN (15:22)
[2020-06-11] MEDS: DEXTROSE 5% IV PRN (15:22)
[2020-06-11] MEDS: DEXTROSE 50% 25 GM/50 ML VIAL IV PRN (18:41)
[2020-06-12] MEDS: INSULIN LISPRO 100 UNIT/ML SUBCUT SCH ×8 (00:05→23:54)
[2020-06-12] MEDS: ALBUTEROL/IPRATROPIUM 3 ML NEB RESP TX SCH ×4 (00:30→19:56)
[2020-06-12] MEDS: metroNIDAZOLE INJ 500 MG in PREMIX 1 EACH IV SCH ×3 (02:18→16:52)
[2020-06-12 05:28] LABS: Basophils # 0.1 10*3/uL (0.0-0.2); Basophils % 0.4 % (0.0-0.8); Eosinophils # 0.3 10*3/uL (0.0-0.87); Eosinophils % 1.9 % (0.00-10.9); Hematocrit 28.3 VOL% (42.0-52.0); Hemoglobin 9.1 GM/DL (14.0-18.0); Immature Granulocytes % 5.2 %; Immature Granulocytes Absolute 0.82 #; Lymphocytes # 1.3 10*3/uL (1.4-4.0); Lymphocytes % 8.3 % (21.2-54.2); Mean Corpuscular HGB Conc 32.2 GM/DL (32-36); Mean Corpuscular Volume 94.6 FL (87-102); Mean Platelet Volume 10.8 FL (9.6-12.0); Monocytes % 7.1 % (1.7-12.7); NRBC # 0.02 10*3/uL; Neutrophils % 77.1 % (38.7-73.9); Platelet Count 213 T/CUMM (130-400); Red Blood Count 2.99 MC/CUMM (3.8-5.5); Red Cell Distribution Width 13.7 % (9.3-17.3); White Blood Count 15.8 T/CUMM (4-12)
[2020-06-12 05:29] LABS: ABG Base Excess -4.6 MMOL/L (-2.5-2.5); ABG HCO3 20.6 MMOL/L (20-26); ABG Oxygen Saturation 99.2 % (95-100); ABG PCO2 34.9 MM HG (35-48); ABG PH 7.368 (7.35-7.45); ABG TCO2 18.3 MMOL/L (23-27)
[2020-06-12 05:49] LABS: Calcium 7.7 MG/DL (8.5-10.1); Osmolality,Calculated 294.7 MOS/KG (273-304)
[2020-06-12 05:55] LABS: Band Neutrophils 3 % (0-10); Hypochromasia 1+; Lymphocytes 11 % (20-55); Microcytosis Slight; Platelet Estimate Adequate; Segmented Neutrophils 76 % (50-85); Total Cells Counted 100
[2020-06-12] MEDS: SODIUM HYPOCHLORITE 0.25% IRRIG 473 ML BOTTLE TOP SCH (09:30)
[2020-06-12] MEDS: INSULIN GLARGINE 100 UNIT/ML SUBCUT SCH ×2 (09:57→20:36)
[2020-06-12] MEDS: PANTOPRAZOLE 40 MG VIAL IV SCH ×2 (09:58→20:35)
[2020-06-12] MEDS: HEPARIN 5,000 UNIT/1 ML VIAL SUBCUT SCH ×2 (09:58→20:34)
[2020-06-12] MEDS: cefOXitin 2,000 MG in SYRINGE 1 EACH IV SCH ×2 (10:06→21:45)
[2020-06-12] MEDS: FENTANYL IV PRN (11:38)
[2020-06-12] MEDS: DEXTROSE 5% IV PRN (11:38)
[2020-06-12] MEDS ORDERED: ALTEPLASE 2 MG VIAL INTRACATH ONE (16:30)
[2020-06-13] MEDS: ALBUTEROL/IPRATROPIUM 3 ML NEB RESP TX SCH ×4 (00:02→19:23)
[2020-06-13] MEDS: metroNIDAZOLE INJ 500 MG in PREMIX 1 EACH IV SCH (01:15)
[2020-06-13 03:47] LABS: ABG Base Excess -3.2 MMOL/L (-2.5-2.5); ABG HCO3 21.7 MMOL/L (20-26); ABG Oxygen Saturation 98.9 % (95-100); ABG PCO2 32.8 MM HG (35-48); ABG PH 7.409 (7.35-7.45); ABG TCO2 18.9 MMOL/L (23-27); Allen Test Positive; Pt O2 Delivery Device Ventilator
[2020-06-13 05:17] LABS: Basophils % 0.3 % (0.0-0.8); Eosinophils # 0.3 10*3/uL (0.0-0.87); Hematocrit 25.3 VOL% (42.0-52.0); Hemoglobin 8.3 GM/DL (14.0-18.0); Immature Granulocytes % 5.2 %; Lymphocytes # 1.5 10*3/uL (1.4-4.0); Lymphocytes % 10.9 % (21.2-54.2); Mean Corpuscular HGB Conc 32.8 GM/DL (32-36); Monocytes % 5.7 % (1.7-12.7); Neutrophils % 75.9 % (38.7-73.9); Platelet Count 243 T/CUMM (130-400); Red Blood Count 2.72 MC/CUMM (3.8-5.5); Red Cell Distribution Width 13.7 % (9.3-17.3); White Blood Count 13.5 T/CUMM (4-12)
[2020-06-13 05:41] LABS: Band Neutrophils 3 % (0-10); Calcium 7.5 MG/DL (8.5-10.1); Eosinophils 3 % (0-10); Lymphocytes 12 % (20-55); Osmolality,Calculated 293.5 MOS/KG (273-304); Segmented Neutrophils 79 % (50-85); Total Cells Counted 100
[2020-06-13 05:42] LABS: Hypochromasia 1+; Microcytosis 1+; Platelet Estimate Adequate
[2020-06-13] MEDS: FENTANYL IV PRN ×2 (05:56→23:42)
[2020-06-13] MEDS: DEXTROSE 5% IV PRN ×2 (05:56→23:42)
[2020-06-13] MEDS: INSULIN LISPRO 100 UNIT/ML SUBCUT SCH ×6 (05:58→18:51)
[2020-06-13] MEDS: HEPARIN 5,000 UNIT/1 ML VIAL SUBCUT SCH ×2 (09:49→20:43)
[2020-06-13] MEDS: SODIUM HYPOCHLORITE 0.25% IRRIG 473 ML BOTTLE TOP SCH (09:49)
[2020-06-13] MEDS: PANTOPRAZOLE 40 MG VIAL IV SCH ×2 (09:51→20:43)
[2020-06-13] MEDS: cefOXitin 2,000 MG in SYRINGE 1 EACH IV SCH ×2 (09:52→20:43)
[2020-06-13] MEDS: INSULIN GLARGINE 100 UNIT/ML SUBCUT SCH (09:55)
[2020-06-13] MEDS: ACETAMINOPHEN 325 MG TABLET PO PRN ×2 (16:10→21:29)
[2020-06-14] MEDS: INSULIN LISPRO 100 UNIT/ML SUBCUT SCH ×8 (00:46→23:00)
[2020-06-14] MEDS: ALBUTEROL/IPRATROPIUM 3 ML NEB RESP TX SCH ×4 (01:06→19:25)
[2020-06-14 04:02] LABS: ABG Base Excess -6.8 MMOL/L (-2.5-2.5); ABG HCO3 17.7 MMOL/L (20-26); ABG Oxygen Saturation 98.6 % (95-100); ABG PCO2 32.3 MM HG (35-48); ABG PH 7.356 (7.35-7.45); ABG TCO2 18.7 MMOL/L (23-27); Allen Test Positive; Pt O2 Delivery Device Ventilator
[2020-06-14 05:13] LABS: Basophils % 0.3 % (0.0-0.8); Eosinophils # 0.2 10*3/uL (0.0-0.87); Eosinophils % 1.1 % (0.00-10.9); Hematocrit 25.2 VOL% (42.0-52.0); Hemoglobin 8.3 GM/DL (14.0-18.0); Immature Granulocytes % 4.7 %; Immature Granulocytes Absolute 0.64 #; Lymphocytes # 1.4 10*3/uL (1.4-4.0); Lymphocytes % 10.2 % (21.2-54.2); Mean Corpuscular HGB Conc 32.9 GM/DL (32-36); Mean Corpuscular Volume 93.3 FL (87-102); Mean Platelet Volume 10.2 FL (9.6-12.0); Monocytes % 6.4 % (1.7-12.7); Neutrophils % 77.3 % (38.7-73.9); Platelet Count 271 T/CUMM (130-400); Red Cell Distribution Width 13.9 % (9.3-17.3); White Blood Count 13.7 T/CUMM (4-12)
[2020-06-14 05:39] LABS: Albumin 1.5 G/DL (3.4-5.0); Bilirubin,Total 0.9 MG/DL (0.2-1.0); Calcium 7.4 MG/DL (8.5-10.1); Total Protein 5.2 G/DL (6.4-8.3)
[2020-06-14 05:44] LABS: Hypochromasia 1+; Lymphocytes 14 % (20-55); Microcytosis 1+; Platelet Estimate Adequate; Segmented Neutrophils 81 % (50-85); Total Cells Counted 100
[2020-06-14] MEDS: PANTOPRAZOLE 40 MG VIAL IV SCH ×2 (08:25→20:29)
[2020-06-14] MEDS: HEPARIN 5,000 UNIT/1 ML VIAL SUBCUT SCH ×2 (08:25→20:29)
[2020-06-14] MEDS: INSULIN GLARGINE 100 UNIT/ML SUBCUT SCH (08:26)
[2020-06-14] MEDS: cefOXitin 2,000 MG in SYRINGE 1 EACH IV SCH (08:27)
[2020-06-14] MEDS: SODIUM HYPOCHLORITE 0.25% IRRIG 473 ML BOTTLE TOP SCH (08:27)
[2020-06-14] MEDS: ACETAMINOPHEN 325 MG TABLET PO PRN (10:45)
[2020-06-14] MEDS: PIPERACILLIN/TAZOBACTAM 3,375 MG in SODIUM CHLORIDE 0.9% 100 ML IV SCH ×2 (12:44→23:02)
[2020-06-14] MEDS: DEXTROSE 5% IV PRN (17:34)
[2020-06-14] MEDS: FENTANYL IV PRN (17:34)
[2020-06-15] MEDS: ALBUTEROL/IPRATROPIUM 3 ML NEB RESP TX SCH ×3 (00:47→13:11)
[2020-06-15] MEDS: DEXTROSE 5% IV PRN (03:55)
[2020-06-15] MEDS: FENTANYL IV PRN (03:55)
[2020-06-15 04:32] LABS: Allen Test Positive; Pt O2 Delivery Device Ventilator
[2020-06-15 04:33] LABS: ABG Base Excess -7.3 MMOL/L (-2.5-2.5); ABG HCO3 18.5 MMOL/L (20-26); ABG Oxygen Saturation 99.7 % (95-100); ABG PCO2 41.9 MM HG (35-48); ABG PH 7.271 (7.35-7.45)
[2020-06-15 05:07] LABS: Basophils % 0.2 % (0.0-0.8); Eosinophils # 0.2 10*3/uL (0.0-0.87); Eosinophils % 1.6 % (0.00-10.9); Hematocrit 24.7 VOL% (42.0-52.0); Hemoglobin 8.1 GM/DL (14.0-18.0); Immature Granulocytes % 2.6 %; Immature Granulocytes Absolute 0.35 #; Lymphocytes # 1.4 10*3/uL (1.4-4.0); Lymphocytes % 10.1 % (21.2-54.2); Mean Corpuscular HGB Conc 32.8 GM/DL (32-36); Mean Corpuscular Volume 93.6 FL (87-102); Mean Platelet Volume 10.1 FL (9.6-12.0); Neutrophils % 79.5 % (38.7-73.9); Platelet Count 291 T/CUMM (130-400); Red Blood Count 2.64 MC/CUMM (3.8-5.5); Red Cell Distribution Width 13.6 % (9.3-17.3); White Blood Count 13.4 T/CUMM (4-12)
[2020-06-15 05:25] LABS: Alanine Aminotransferase < 9 U/L (16-61); Albumin 1.5 G/DL (3.4-5.0); Alkaline Phosphatase 168 U/L (45-117); Aspartate Amino Transferase 20 U/L (0-37); Blood Urea Nitrogen 78 MG/DL (7-18); Calcium 7.5 MG/DL (8.5-10.1); Estimated Glom Filtration Rate 14 ML/MIN; Glucose 167 MG/DL (74-106); Total Protein 5.3 G/DL (6.4-8.3)
[2020-06-15] MEDS: INSULIN LISPRO 100 UNIT/ML SUBCUT SCH ×3 (06:28→12:41)
[2020-06-15] MEDS: HEPARIN 5,000 UNIT/1 ML VIAL SUBCUT SCH (08:36)
[2020-06-15] MEDS: INSULIN GLARGINE 100 UNIT/ML SUBCUT SCH (08:36)
[2020-06-15] MEDS: PANTOPRAZOLE 40 MG VIAL IV SCH (08:36)
[2020-06-15] MEDS: SODIUM HYPOCHLORITE 0.25% IRRIG 473 ML BOTTLE TOP SCH (08:37)
[2020-06-15] MEDS ORDERED: HYDROmorphone 2 MG/1 ML VIAL IV PRN (08:49)
[2020-06-15] MEDS ORDERED: INSULIN GLARGINE 100 UNIT/ML SUBCUT SCH (09:00)
[2020-06-15] MEDS: PIPERACILLIN/TAZOBACTAM 3,375 MG in SODIUM CHLORIDE 0.9% 100 ML IV SCH (12:41)
[2020-06-15 13:12] VITALS: BP 134/64
[2020-06-15] MEDS ORDERED: INFLUENZA VIRUS VACCINE 0.5 ML SYRINGE IM ONE (14:04)
== END 2020-06-15 14:30 | DRG 710 ==
LOC: N.ICU 14:07 → SUATTDRO 14:07 → UNDODISIN 06-15 14:30
PROVIDERS: ADMIT Internal Medicine; ATTEND Internal Medicine